=== PATIENT | female | born 1960 | race African-American/Black ===

== ENCOUNTER 2017-01-08 04:16 | Inpatient (IN) | payer OTHER ==
[2017-01-08] VITALS (10 sets, daily range): BP systolic 97–152; BP diastolic 58–86; PULSE 62–101; RESP 15–20; TEMP 97.7–98.5; O2SAT 99–100
[~2017-01-08] VITALS: Ht 152.4 cm; Wt 59.3 kg
[~2017-01-08 04:16] MED LIST: METO25TA3 PO
[2017-01-08] MEDS ORDERED: ACETAMINOPHEN 325 MG TAB PO PRN (12:45)
[2017-01-08] MEDS ORDERED: NALOXONE HCL 0.4 MG/ML AMP IV PUSH PRN (12:45)
[2017-01-08] MEDS ORDERED: SODIUM CHLORIDE 0.9% FLUSH 10 ML FLUSH IV FLUSH PRN (12:45)
[2017-01-08] MEDS ORDERED: LACTULOSE SYRUP 20 GM/30 ML CUP PO PRN (12:45)
[2017-01-08] MEDS ORDERED: MAGNESIUM HYDROXIDE SUSP 30 ML CUP PO PRN (12:45)
[2017-01-08] MEDS ORDERED: ONDANSETRON HCL 4 MG/2 ML VIAL IVP PRN (12:45)
[2017-01-08] MEDS ORDERED: SENNOSIDES 8.6 MG TAB PO PRN (12:45)
[2017-01-08] MEDS ORDERED: TEMAZEPAM 15 MG CAP PO PRN (12:45)
[2017-01-08] MEDS ORDERED: BISACODYL 10 MG SUPP RECTAL PRN (12:45)
--- NOTE | 2017-01-08 17:26 | HHI.HP ---
[facility] Physician Non-Staff Admission Diagnosis Diagnoses: (1) Hemoptysis Diagnosis: Principal Chief Complaint: Coughing up blood Travel History International Travel<30 Days: No Contact w/Intl Traveler <30 Da: No Traveled to Known Affected Are: No History of Present Illness Written by Shiraz Cavazos, acting as scribe for Dr. Reed on 01/08/17 at 17:18. This is a 57-year-old female from [facility] who presented to [facility] because of hemoptysis. Patient states that she is in her normal state of health until yesterday when she is sitting on the calcaneus felt to the back her throat and she coughed it up and it was bloody sputum. Because of that reason she went to the ER for evaluation. Patient does have history of TB that was treated back in 1989 in [facility] with 4 months worth of medication that she does not remember the name. 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 In September she had chest x-ray and CT scan done of her chest that the [facility] and was cleared to work. She denies any fever, chills, night sweats, weight loss, chest pain, cough, congestion. Because of the hemoptysis is recommended by the ER physician the patient be observed in the hospital for further evaluation management. Patient states that this time she still experiencing the hemoptysis, now she is having some epistaxis. She cannot determine if she is having postnasal drip or not. Review of Systems Ears, nose, mouth, throat: COMPLAINS OF: Epistaxis Respiratory: COMPLAINS OF: Hemoptysis Except as stated in HPI: all other systems reviewed are Neg Past Family Social History Past Medical History Palpitations History TB Past Surgical History Tubal 2 Fibroid removal Reported Medications Reported Meds & Active Scripts Active Reported Metoprolol Tartrate 25 Mg Tab 25 Mg PO BID Allergies: Coded Allergies: No Known Allergies (Unverified , 01/07/17) Family History Reviewed is significant for mother at age 75 unknown reason, does not know about her father. Social History Patient denies any tobacco or illicit drugs. Does use alcohol occasionally Physical Exam Vital Signs Vital Signs Date Time Temp Pulse Resp B/P (MAP) Pulse Ox O2 Delivery O2 Flow Rate FiO2 01/08/17 16:20 98.3 101 18 142/81 (101) 01/08/17 12:30 98.4 68 17 142/81 (101) 01/08/17 12:00 98.3 78 18 152/83 (106) 01/08/17 11:00 98.3 83 18 141/83 (102) 01/08/17 09:47 97.7 62 15 127/76 (93) 99 Physical Exam GENERAL: Well-developed, well-nourished, in no acute distress. alert and orientated HEENT: Head is normocephalic without any lesions or masses noted. Facial features are symmetric. Eyes: Pupils equal round reactive to light. Extraocular muscles are intact. Conjunctivae were clear. Oropharyngeal: Pharynx without any erythema edema. Tongue is midline without deviation. Buccal mucosa is moist without any masses or lesions. Unable to witness any blood noted in posterior pharynx. However in the right nares does appear to have some irritation and inflammation NECK: Supple without any masses. Trachea midline no deviation. No JVD, no bruits are appreciated CARDIAC: Regular rhythm, regular rate. S1/S2 are heard. No murmurs gallops or rubs. LUNGS: Clear to auscultation bilaterally. No wheeze, rhonchi or rales. No use of accessory muscles on inspiration or expiration. ABDOMEN: Soft, nontender. Nondistended. Bowel sounds heard in all 4 quadrants. No organomegaly or masses. Negative rebound, negative guarding EXTREMITIES: No edema, pulses are equal bilaterally. No cyanosis or clubbing NEUROLOGY: Mood and affect appear appropriate. Cranial nerves II through XII grossly intact. Muscle strength 5/5 in upper and lower extremities bilaterally. Deep tendon reflexes are 2+ in upper and lower extremities bilaterally. Caprini VTE Risk Assessment Caprini VTE Risk Assessment: Mod/High Risk (score >= 2) VTE Pharm Contraindication: Active bleeding Caprini Risk Assessment Model Point Value = 1 Point Value = 2 Point Value = 3 Point Value = 5 Age 41-60 Minor surgery BMI > 25 kg/m2 Swollen legs Varicose veins or History of unexplained or recurrent spontaneous Oral contraceptives or hormone replacement Sepsis (< 1 month) Serious lung disease, including pneumonia (< 1 month) Abnormal pulmonary function Acute myocardial infarction Congestive heart failure (< 1 month) History of inflammatory bowel disease Medical patient at bed rest Age 61-74 Arthroscopic surgery Major open surgery (> 45 min) Laparoscopic surgery (> 45 min) Malignancy Confined to bed (> 72 hours) Immobilizing plaster cast Central venous access Age >= 75 History of VTE Family history of VTE Factor V Leiden Prothrombin [id number] Lupus anticoagulant Anticardiolipin antibodies Elevated serum homocysteine Heparin-induced thrombocytopenia Other congenital or acquired thrombophilia Stroke (< 1 month) Elective arthroplasty Hip, pelvis, or leg fracture Acute spinal cord injury (< 1 month) Prophylaxis Regimen Total Risk Factor Score Risk Level Prophylaxis Regimen 0-1 Low Early ambulation 2 Moderate Order ONE of the following: *Sequential Compression Device (SCD) *Heparin 5000 units SQ BID 3-4 Higher Order ONE of the following medications: *Heparin 5000 units SQ TID *Enoxaparin/Lovenox 40 mg SQ daily (WT < 150 kg, CrCl > 30 mL/min) *Enoxaparin/Lovenox 30 mg SQ daily (WT < 150 kg, CrCl > 10-29 mL/min) *Enoxaparin/Lovenox 30 mg SQ BID (WT < 150 kg, CrCl > 30 mL/min) AND/OR *Sequential Compression Device (SCD) 5 or more Highest Order ONE of the following medications: *Heparin 5000 units SQ TID (Preferred with Epidurals) *Enoxaparin/Lovenox 40 mg SQ daily (WT < 150 kg, CrCl > 30 mL/min) *Enoxaparin/Lovenox 30 mg SQ daily (WT < 150 kg, CrCl > 10-29 mL/min) *Enoxaparin/Lovenox 30 mg SQ BID (WT < 150 kg, CrCl > 30 mL/min) AND *Sequential Compression Device (SCD) Assessment and Plan Assessment and Plan Hemoptysis Unknown if this is pulmonary etiology versus posterior pharynx/nasopharynx. CTA chest shows bilateral apical airspace disease, associated loss and cystic bronchiectasis in the left upper lobe characteristic of a chronic inflammatory process. X-rays CT findings could be secondary to old TB infection, patient does not show any active constitutional symptoms to indicate active TB Obtain sputum for AFB Pulmonary consultation History of palpitations Continue metoprolol DVT prevention Sequential compression devices This note was transcribed by guy Cavazos. I, Dr. Roland West personally performed the history, physical exam, and medical decision making; and confirmed the accuracy of the information in the transcribed note. Authenticated by Dr. Roland West on 01/08/17 at 17:33. Physician Certification 2 Midnight Certification Type: Admission for Inpatient Services Order for Inpatient Services The services are ordered in accordance with Medicare regulations or non- Medicare payer requirements, as applicable. In the case of services not specified as inpatient-only, they are appropriately provided as inpatient services in accordance with the 2-midnight benchmark. Estimated LOS (days): 2 days is the estimated time the patient will need to remain in the hospital, assuming treatment plan goals are met and no additional complications. Post-Hospital Plan: Not yet determined Shiraz Cavazos Jan 08, 2017 17:26 Roland Armendariz MD Jan 08, 2017 17:48
--- NOTE | 2017-01-08 18:44 | MB ---
cc: GENE BAGLEY DATE OF CONSULTATION: 01/08/2017. REASON FOR CONSULTATION: Hemoptysis and history of TB. REQUESTING PHYSICIAN: Shiraz Cavazos. HISTORY OF PRESENT ILLNESS: Ms. Crowe is a 55-year-old [place] [facility] She has a history of pulmonary tuberculosis in the 1970s. She was in the hospital for four months for the treatment she says that she completed the treatment and she came over here. She was seen by the health department and she got some more treatment. 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 The patient came to the hospital with an episode of coughing up blood, which was sudden on onset. She has no recent fever or chills, night sweats, weight loss. She is not brining up much sputum. She was seen at the [facility] and was sent over here. She had a CT scan of the chest done which shows that she has apical airspace disease most prominent in the left apex with cystic bronchiectatic changes. Her CBC showed white blood cell count 4.9, hemoglobin 13.3, hematocrit 42.8, MCV 89, platelet count 200,000. Her sodium is 144, potassium 4.3, chloride 108, carbon dioxide 28, BUN 16, creatinine 0.80. INR is 1.0. PAST MEDICAL HISTORY: Her past medical history is significant for: 1. History of pulmonary tuberculosis. 2. History of hypertension. 3. History of palpitations. MEDICATIONS: 1. Metoprolol at home. ALLERGIES: NO KNOWN DRUG ALLERGIES. SOCIAL HISTORY: She no smoking or alcohol abuse. 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 FAMILY HISTORY: She is , has no children. She has four brothers. Nobody else in the family has TB. REVIEW OF SYSTEMS: Denies any weight loss. Normally she is up around and active. No prior history of hemoptysis. No seizure, stroke, epilepsy. No DVT or pulmonary embolus. PHYSICAL EXAMINATION: GENERAL: A moderately built and moderately nourished female not in acute distress. VITAL SIGNS: Blood pressure 97.52, heart rate 76, respirations 17, temperature 97.7. HEAD, EYES, EARS, NOSE, THROAT: Pupils are equal and reactive. Oral mucosa and nasal mucosa are normal. NECK: The neck is supple. JVP not raised. CHEST: Air entry equal bilaterally. No rhonchi. CARDIOVASCULAR: S1-S2 normal. ABDOMEN: Abdomen benign. EXTREMITIES: No edema. IMPRESSION: 1. Hemoptysis most probably from the bronchiectatic changes in the left apex. 2. History of pulmonary tuberculosis. 3. Bronchiectatic changes in the lungs. 4. History of diabetes. PLAN: I discussed with the patient that we will monitor her hemoptysis, check the sputum for culture and sensitivity and I will start her on racemic epinephrine nebulizer treatment. If the hemoptysis persists or the sputums are not diagnostic we will consider bronchoscopy. Further treatment will depend on the course in the hospital. Thank you, Shiraz Cavazos for this consult. Gene Bagley MD ADA/JCC /5:49 PM /6:33 PM
[2017-01-08] MEDS: DOCUSATE SODIUM 50 MG/SENNA 8.6 MG TAB PO SCH (20:33)
[2017-01-08] MEDS: SODIUM CHLORIDE 0.9% FLUSH 10 ML FLUSH IV FLUSH SCH (20:44)
[2017-01-08] MEDS: RESP: RACEPINEPHRINE 2.25% 0.5 ML NEB NEB SCH (21:11)
[2017-01-09] MEDS: RESP: RACEPINEPHRINE 2.25% 0.5 ML NEB NEB SCH ×3 (03:38→15:44)
[2017-01-09 05:00] VITALS: BP 101/63; PULSE 68; RESP 20; TEMP 97.3; O2SAT 98
[2017-01-09 06:58] LABS: AUTOMATED NEUTROPHIL # 2.2 TH/MM3 (1.8-7.7); BASOPHIL % 0.4 % (0.0-2.0); EOSINOPHIL # 0.1 TH/MM3 (0-0.4); EOSINOPHIL % 2.5 % (0.0-4.0); HEMATOCRIT 39.2 % (35.0-46.0); LYMPH % 44.1 % (9.0-44.0); LYMPHOCYTE # 2.4 TH/MM3 (1.0-4.8); MEAN CELL VOLUME 85.4 FL (80.0-100.0); MEAN CORPUSCULAR HEMOGLOBIN 27.2 PG (27.0-34.0); MEAN CORPUSCULAR HGB CONC 31.9 % (32.0-36.0); MONO % 8.7 % (0.0-8.0); NEUT % 44.3 % (16.0-70.0); PLATELET COUNT 196 TH/MM3 (150-450); RED BLOOD COUNT 4.59 MIL/MM3 (4.00-5.30); WHITE BLOOD COUNT 5.1 TH/MM3 (4.0-11.0)
[2017-01-09 07:05] LABS: HEMO FLAGS AUTO DIFF
[2017-01-09 07:16] LABS: BICARBONATE 30.5 MEQ/L (21.0-32.0)
[2017-01-09 08:00] VITALS: BP 94/69; PULSE 74; RESP 16; TEMP 97.6; O2SAT 95
[2017-01-09 08:20] LABS: PLATELET ESTIMATE SMEAR NORMAL (NORMAL); PLATELET MORPHOLOGY NORMAL (NORMAL); SCAN/DIFF AUTO DIFF CONFIRMED
[2017-01-09] MEDS: DOCUSATE SODIUM 50 MG/SENNA 8.6 MG TAB PO SCH (08:36)
[2017-01-09] MEDS: SODIUM CHLORIDE 0.9% FLUSH 10 ML FLUSH IV FLUSH SCH (08:36)
[2017-01-09 09:00] VITALS: BP 99/69; PULSE 74; RESP 16; TEMP 97.6
[2017-01-09 09:25] VITALS: O2SAT 100
[2017-01-09 12:00] VITALS: BP_SYST 109; BP_SYST 98; BP_DIAS 59; BP_DIAS 73; PULSE 68; PULSE 81; RESP 17; RESP 18; TEMP 97.5; TEMP 98.1; O2SAT 97
--- NOTE | 2017-01-09 15:57 | HHI.PR ---
Objective Vitals Vital Signs Date Time Temp Pulse Resp B/P (MAP) Pulse Ox O2 Delivery O2 Flow Rate FiO2 01/09/17 12:00 98.1 81 18 109/73 (85) 97 01/09/17 12:00 97.5 68 17 98/59 (72) 01/09/17 09:25 100 21 01/09/17 09:00 97.6 74 16 99/69 (79) 01/09/17 08:00 97.6 74 16 94/69 (77) 95 01/09/17 05:00 97.3 68 20 101/63 (76) 98 01/08/17 23:44 98.5 76 20 142/86 (104) 99 01/08/17 20:00 98.4 66 20 117/73 (88) 100 01/08/17 18:21 97.7 63 18 101/65 (77) 01/08/17 17:39 97.7 76 17 97/58 (71) 01/08/17 16:20 98.3 101 18 142/81 (101) I/O 01/08/17 01/08/17 01/08/17 01/09/17 01/09/17 01/09/17 07:00 15:00 23:00 07:00 15:00 23:00 Intake Total 800 ml 320 ml Balance 800 ml 320 ml Intake Oral 800 ml 320 ml # Voids 2 2 1 Result Diagram: 01/09/1735 01/09/17 0635 A/P Problem List: (1) Hemoptysis ICD Code: R04.2 - Hemoptysis Roland Armendariz MD Jan 09, 2017 15:57
[2017-01-09] MEDS ORDERED: SODIUM CHLORID 0.9% 500 ML INJ 500 ML IV ONE (16:00)
--- NOTE | 2017-01-09 21:19 | HHI.PR ---
Addendum to Inpatient Note Addendum Reason: Additional Documentation Additional Information Went to see patient, however RN told me that the patient signed out AMA. Roland Armendariz MD Jan 09, 2017 21:19
--- NOTE | 2017-01-09 21:29 | PD.AMA ---
Against Medical Advice Note Discharge Disposition: Against Medical Advice Pt Condition on Discharge: Stable Recommended Treatment Course Patient admitted to the medical floor. Pulmonology recommended treatments with racemic epinephrine which the patient has refused as per RN recommendations. Sputum AFB ordered and pending. If hemoptysis persists the bronchoscopy to be considered. AMA Statement Patient Nicole Crowe has decided to leave the hospital against medical advice. This patient has the capacity to refuse care and understands the risks of leaving, including permanent disability and/or , and has had an opportunity to ask questions about her condition. The patient has been informed that she may return for care at any time, and follow up has been advised. Roland Armendariz MD Jan 09, 2017 21:29
== END 2017-01-09 17:36 | disposition left against medical advice (07) | DRG 204 ==
LOC: PHEDDLT 04:16 → PH3B 07:22
PROVIDERS: ADMIT Hospitalist; ATTEND Hospitalist
DX: R04.2 Hemoptysis (principal); I10 Essential (primary) hypertension; E11.9 Type 2 diabetes mellitus without complications; J47.9 Bronchiectasis, uncomplicated; R00.2 Palpitations; R04.0 Epistaxis; Z86.11 Personal history of tuberculosis
CPT/HCPCS: 71010; 71260; 80048; 80053; 81001; 82550; 83605; 83880; 84484; 85025; 85379; 85610; 85730; 87015; 87070; 87116; 87205; 87206; 94664; J7040; Q9967